=== PATIENT | female | born 1995 | race Caucasian/White ===

== ENCOUNTER 2017-02-01 09:54 | Emergency (ER) | payer OTHER ==
[~2017-02-01] VITALS: Ht 157.5 cm; Wt 54.5 kg
[~2017-02-01 09:54] MED LIST: CLR10 PO
[2017-02-01 09:57] VITALS: TEMP 37.2; Ht 157.5 cm; Wt 54.5 kg
[2017-02-01 10:58] LABS: BASO % 0.4 %; BASO ABS # 0.02 K/uL (0-0.2); COMPLETE YES; EOS % 1.1 %; HEMATOCRIT 42.1 % (37-47); IG% 0.2 %; LYMPH % 36.9 %; MEAN CELL VOLUME 82.4 fL (80-100); MEAN CORPUSCULAR HEMOGLOBIN 27.6 pg (25-34); MEAN CORPUSCULAR HGB CONC 33.5 g/dl (32-36); MEAN PLATELET VOLUME 10.1 fL (7.4-10.4); MONO % 9.8 %; NEUT % 51.6 %; PLATELET COUNT 225 K/uL (130-400); RED BLOOD COUNT 5.11 M/uL (4.2-5.4); WHITE BLOOD COUNT 5.69 K/uL (4.8-10.8)
[2017-02-01 11:21] LABS: ALT/SGPT 16 U/L (12-78); AST/SGOT 16 U/L (15-37); BLOOD UREA NITROGEN 8 mg/dl (7-18); BUN/CREATININE RATIO 10.7 (10-20); CALCIUM 8.6 mg/dl (8.5-10.1); CARBON DIOXIDE 26 mmol/L (21-32); CHLORIDE 108 mmol/L (98-107); CREATININE 0.73 mg/dl (0.60-1.20); GLUCOSE 78 mg/dl (70-99); POTASSIUM 3.9 mmol/L (3.5-5.1); SODIUM 139 mmol/L (136-145)
[2017-02-01 11:24] LABS: ALKALINE PHOSPHATASE 52 U/L (45-117)
[2017-02-01] MEDS ORDERED: SODIUM CHLORIDE 0.9% 1000ML 1,000 ML IV STA (11:47)
[2017-02-01] MEDS ORDERED: KETOROLAC TROMETHAMINE 30 MG/ML VIAL IV STA (11:53)
[2017-02-01 12:03] LABS: URINE APPEARANCE CLOUDY (CLEAR); URINE BILIRUBIN NEG (NEG); URINE COLOR YELLOW; URINE EPITHELIAL CELL AUTO >30 /lpf (0-5); URINE NITRITE NEG (NEG); URINE SPECIFIC GRAVITY 1.013 (1.000-1.030); UROBILINOGEN NEG (NEG)
[2017-02-01 12:05] LABS: MANUAL MICROSCOPIC REQUIRED? NO; REVIEW REQ? NO
--- NOTE | 2017-02-01 12:38 | DIAGNOSTIC IMAGING REPORT ---
CT OF THE ABDOMEN AND PELVIS WITHOUT CONTRAST, STONE PROTOCOL CLINICAL HISTORY: Left-sided abdominal pain. Evaluate for stone. COMPARISON STUDY: None. TECHNIQUE: Helical axial images of the abdomen and pelvis were obtained without IV or oral contrast according to renal stone protocol. FINDINGS: No renal, ureteral or bladder calculi are identified. There is no hydronephrosis or hydroureter. Evaluation of the remainder of the abdomen and pelvis is suboptimal on this unenhanced exam. Unenhanced images of the liver, spleen, adrenal glands and pancreas are unremarkable. There is no evidence for a bowel obstruction. There is a moderate amount of stool within the colon and rectum. The appendix is normal. There is a small amount of fluid within the pelvis which is low attenuation. There is a 6.4 cm water attenuation right adnexal lesion. IMPRESSION: 1. No urinary calculi or hydronephrosis. 2. 6.4 cm right adnexal lesion which likely reflects an ovarian cyst. A follow-up pelvic ultrasound in 6 weeks to ensure resolution is recommended. 3. Small amount of fluid within the pelvis. 4. Moderate amount of stool within colon and rectum. Electronically signed by: Rusty Ghosh M.D. 02/01/2017 12:36 PM Dictated Date/Time: 02/01/2017 12:27 PM
[2017-02-01] MEDS ORDERED: SULF800T23 PO (13:10)
[2017-02-01 13:25] VITALS: BP 97/64; PULSE 66; O2SAT 100
--- NOTE | 2017-02-01 17:33 | EMERGENCY ROOM VISIT NOTE ---
History Report prepared by Elli: Sara Brown Under the Supervision of: Dr. Yoel Garner M.D. First contact with patient: 10:01 Chief Complaint: ABDOMINAL PAIN Stated Complaint: ABDOMINAL PAIN History of Present Illness The patient is a 21 year old female who presents to the Emergency Room with complaints of constant left sided abdominal pain that began last night. She describes the pain as sharp. She became concerned when she woke up with the pain this morning. The pain is worse with movement and with certain position changes. It is better when she lies down on her right side. It does not wrap around to her back. She has not performed any abdominal exercises recently. The patient had a sore throat and subjective fever 3 days ago which has since improved. She has not noticed a fever since her abdominal pain began. Denies vomiting, diarrhea, urinary symptoms, abnormal vaginal discharge/bleeding, rash , or other complaints. Source of History: patient Onset: last night Position: abdomen (left side) Quality: sharp Timing: constant Modifying Factors (Worsening): movement, other (certain position changes) Associated Symptoms: No diarrhea, No rash, No urinary symptoms, No vomiting Review of Systems See HPI for pertinent positives & negatives. A total of 10 systems reviewed and were otherwise negative. Past Medical & Surgical Medical Problems: (1) Left ankle pain (2) No significant medical problems Family History Hypertension Social History Smoking Status: Never Smoker Alcohol Use: none Drug Use: none Marital Status: single Housing Status: lives with roommate Occupation Status: [employer] student Current/Historical Medications Scheduled Sulfa/Trimethoprim (Bactrim Ds 800MG/160MG), 1 TAB PO BID Scheduled PRN Loratadine (Claritin), 10 MG PO DAILY PRN for ALLERGIC REACTION Allergies Coded Allergies: Cat Dander (Verified Allergy, Intermediate, CONGESTION, 10/04/15) Physical Exam Vital Signs Date Time Temp Pulse Resp B/P Pulse Ox O2 Delivery O2 Flow Rate FiO2 02/01/17 13:25 66 16 97/64 100 02/01/17 12:01 90 16 102/61 97 Room Air 02/01/17 10:07 97 Room Air 02/01/17 09:57 37.2 96 18 118/55 100 Room Air Physical Exam Constitutional: Vital signs reviewed. Eyes: Pupils are equal round reactive to light. Conjunctiva are noninjected. ENT: Pharynx is clear without erythema or exudate. Mucous membranes are moist. Neck supple without meningeal signs. Respiratory: Clear to auscultation bilaterally. Breath sounds are equal bilaterally. Cardiovascular: Regular rate and rhythm. No rubs or gallops. GI: Soft, nondistended. She had umbilical and left mid abdominal tenderness without guarding. Bowel sounds are present. Musculoskeletal: No peripheral edema. No lower extremity tenderness. No CVA tenderness. Integumentary: No cyanosis. Neurological: The patient is awake and alert. No focal deficits. Psychiatric: Normal affect. Medical Decision & Procedures ER Provider Diagnostic Interpretation: Radiology results as stated below per my review and the radiologist's interpretation: CT OF THE ABDOMEN AND PELVIS WITHOUT CONTRAST, STONE PROTOCOL CLINICAL HISTORY: Left-sided abdominal pain. Evaluate for stone. COMPARISON STUDY: None. TECHNIQUE: Helical axial images of the abdomen and pelvis were obtained without IV or oral contrast according to renal stone protocol. FINDINGS: No renal, ureteral or bladder calculi are identified. There is no hydronephrosis or hydroureter. Evaluation of the remainder of the abdomen and pelvis is suboptimal on this unenhanced exam. Unenhanced images of the liver, spleen, adrenal glands and pancreas are unremarkable. There is no evidence for a bowel obstruction. There is a moderate amount of stool within the colon and rectum. The appendix is normal. There is a small amount of fluid within the pelvis which is low attenuation. There is a 6.4 cm water attenuation right adnexal lesion. IMPRESSION: 1. No urinary calculi or hydronephrosis. 2. 6.4 cm right adnexal lesion which likely reflects an ovarian cyst. A follow-up pelvic ultrasound in 6 weeks to ensure resolution is recommended. 3. Small amount of fluid within the pelvis. 4. Moderate amount of stool within colon and rectum. Electronically signed by: Rusty Ghosh M.D. 02/01/2017 12:36 PM Dictated Date/Time: 02/01/2017 12:27 PM Laboratory Results 02/01/17 10:45 Red Blood Count 5.11, Mean Corpuscular Volume 82.4, Mean Corpuscular Hemoglobin 27.6, Mean Corpuscular Hemoglobin Concent 33.5, Mean Platelet Volume 10.1, Neutrophils (%) (Auto) 51.6, Lymphocytes (%) (Auto) 36.9, Monocytes (%) (Auto) 9.8, Eosinophils (%) (Auto) 1.1, Basophils (%) (Auto) 0.4, Neutrophils # (Auto) 2.94, Lymphocytes # (Auto) 2.10, Monocytes # (Auto) 0.56, Eosinophils # (Auto) 0.06, Basophils # (Auto) 0.02 02/01/17 10:45 Test 02/01/17 10:45 02/01/17 11:47 White Blood Count 5.69 K/uL (4.8-10.8) Red Blood Count 5.11 M/uL (4.2-5.4) Hemoglobin 14.1 g/dL (12.0-16.0) Hematocrit 42.1 % (37-47) Mean Corpuscular Volume 82.4 fL (80-100) Mean Corpuscular Hemoglobin 27.6 pg (25-34) Mean Corpuscular Hemoglobin Concent 33.5 g/dl (32-36) Platelet Count 225 K/uL (130-400) Mean Platelet Volume 10.1 fL (7.4-10.4) Neutrophils (%) (Auto) 51.6 % Lymphocytes (%) (Auto) 36.9 % Monocytes (%) (Auto) 9.8 % Eosinophils (%) (Auto) 1.1 % Basophils (%) (Auto) 0.4 % Neutrophils # (Auto) 2.94 K/uL (1.4-6.5) Lymphocytes # (Auto) 2.10 K/uL (1.2-3.4) Monocytes # (Auto) 0.56 K/uL (0.11-0.59) Eosinophils # (Auto) 0.06 K/uL (0-0.5) Basophils # (Auto) 0.02 K/uL (0-0.2) RDW Standard Deviation 40.0 fL (36.4-46.3) RDW Coefficient of Variation 13.1 % (11.5-14.5) Immature Granulocyte % (Auto) 0.2 % Immature Granulocyte # (Auto) 0.01 K/uL (0.00-0.02) Anion Gap 5.0 mmol/L (3-11) Est Creatinine Clear Calc Drug Dose 95.6 ml/min Estimated GFR () 135.5 Estimated GFR (Non- 116.9 BUN/Creatinine Ratio 10.7 (10-20) Calcium Level 8.6 mg/dl (8.5-10.1) Total Bilirubin 0.2 mg/dl (0.2-1) Direct Bilirubin < 0.1 mg/dl (0-0.2) Aspartate Amino Transf (AST/SGOT) 16 U/L (15-37) Alanine Aminotransferase (ALT/SGPT) 16 U/L (12-78) Alkaline Phosphatase 52 U/L (45-117) Total Protein 7.7 gm/dl (6.4-8.2) Albumin 3.8 gm/dl (3.4-5.0) Lipase 204 U/L (73-393) Monoscreen NEG (NEG) Urine Color YELLOW Urine Appearance CLOUDY (CLEAR) Urine pH 5.0 (4.5-7.5) Urine Specific [place] 1.013 (1.000-1.030) Urine Protein NEG (NEG) Urine Glucose (UA) NEG (NEG) Urine Ketones TRACE (NEG) Urine Occult Blood NEG (NEG) Urine Nitrite NEG (NEG) Urine Bilirubin NEG (NEG) Urine Urobilinogen NEG (NEG) Urine Leukocyte Esterase NEG (NEG) Urine WBC (Auto) 5-10 /hpf (0-5) Urine RBC (Auto) 0-4 /hpf (0-4) Urine Hyaline Casts (Auto) 1-5 /lpf (0-5) Urine Epithelial Cells (Auto) >30 /lpf (0-5) Urine Bacteria (Auto) 1+ (NEG) Urine Test NEG (NEG) Laboratory results as reviewed by me. Medications Administered Medications (Trade) Dose Ordered Sig/Codey Route Start Time Stop Time Status Last Admin Dose Admin Sodium Chloride (Nss 1000ml) 1,000 ml @ 999 mls/hr Q1H1M STAT IV 02/01/17 11:47 02/01/17 12:47 DC 02/01/17 12:01 999 MLS/HR Ketorolac Tromethamine (Toradol Inj) 10 mg NOW STAT IV 02/01/17 11:53 02/01/17 11:54 DC 02/01/17 12:01 10 MG ED Course 1006: The patient was evaluated in room A4. A complete history and physical exam was performed. 1147: Ordered NSS 1000 ml @ 999 mls/hr IV. 1150: I reassessed the patient. She is still having pain. I reviewed test results with her and recommended a CT scan. She was in agreement. 1153: Ordered Toradol Inj 10 mg IV. 1303: I reassessed the patient. She said that she is unsure of her last bowel movement and thinks it may have been 2 days ago. I discussed test results with her. The patient will be discharged home. Medical Decision This is a 21-year-old female who presents with left-sided abdominal pain. Differential diagnosis includes pancreatitis, peptic ulcer disease, irritable bowel syndrome, inflammatory bowel disease, kidney stone, strain. I did perform a limited focused review of portions of the patient's old chart on the electronic medical record. The patient has had no recent pertinent visits to this hospital. I did evaluate the patient as noted above. She is presenting with left-sided abdominal pain which is worse with movement. She states it is better when she stays still. She mostly has the pain when she moves around or sits up. IV access was established. I did order and personally review the patient's urinalysis as described above. The results were equivocal. A urine culture was sent. Urine test is negative. I did treat her with normal saline IV and Toradol IV. I did order and review the patient's blood work as noted in the electronic medical record. Her labs are unremarkable. After further discussion with the patient, I did order a CT of the abdomen and pelvis. I did review the images myself as well as the radiology report as described above. There is no evidence of acute pathology. The patient does have a right-sided cystic structure near her adnexa. I did reevaluate the patient. I did discuss the test results with her in detail. I did recommend she follow with [facility] as well as a server security administrator for further evaluation. She may need an outpatient ultrasound to further delineate this cystic structure. She was given a prescription for Bactrim for 7 days and discharged in good condition. Impression Primary Impression: Left sided abdominal pain Additional Impression: Adnexal cyst Departure Information Dispostion Home / Self-Care Prescriptions Sulfa/Trimethoprim (Bactrim Ds 800MG/160MG) Tab 1 TAB PO BID, #14 TAB Prov: Yoel Garner M.D. 02/01/17 Referrals [facility] (PCP) Forms HOME CARE DOCUMENTATION FORM, IMPORTANT VISIT INFORMATION Patient Instructions ED Abd Pain Unkn Cause Fem, ED Cyst Ovarian, My [facility] Additional Instructions You have been examined and treated today on an emergency basis only. This is not a substitute for, or an effort to provide, complete comprehensive medical care. It is impossible to recognize and treat all injuries or illnesses in a single emergency department visit. It is therefore important that you follow up closely with [facility] and the server security administrator. Call as soon as possible for an appointment. You will need an outpatient ultrasound of your pelvis to further define the CAT scan findings. Return for worsening symptoms or if you develop fever, vomiting, or any other concerning symptoms. Use MiraLAX [id number] to help with your bowel movements. Problem Qualifiers
== END 2017-02-01 13:27 | disposition home or self-care (01) ==
LOC: C.EDB 09:55 → C.EDA 13:27
DX: N83.8 Other noninflammatory disorders of ovary, fallopian tube and broad ligament (principal); Z82.49 Family history of ischemic heart disease and other diseases of the circulatory system